=== PATIENT | male | born 1975 | race Caucasian/White ===

== ENCOUNTER 2017-02-19 06:12 | Emergency (ER) | payer OTHER ==
[~2017-02-19] VITALS: Ht 195.6 cm; Wt 99.0 kg
[~2017-02-19 06:12] MED LIST: ADDERALL20 MG PO; ALEVE220 M2 PO; ALEVE220 MG PO; CITALOPRAM HBR20 MG PO; CLONAZEPAM0.5 MG PO; FLEXERIL10 MG PO; LEXAPRO10 MG PO; MOTRIN IB200 MG; MOTRIN400 MG PO; MOTRIN800 MG PO; NAPROSYN500 MG PO; NOHOMEMEDS; NORCO 5/3251 TABLET PO; OXYCODONE HCL10 MG PO; POTASSIUM-9999 MG PO; PROMETHAZINE HC25 M1 PO; ROXICODONE5 MG PO; SEROQUEL100 MG PO; SEROQUEL50 MG PO; TYLENOL REGULA325 MG PO; ULTRAM50 MG PO; VALIUM10 MG PO; ZOFRAN4 MG PO; ZOLOFT100 MG PO
[2017-02-19 08:00] LABS: EOSINOPHIL (%) 0.7 % (0-5); EOSINOPHIL COUNT 0.1 K/uL (0-0.3); HEMATOCRIT 39.7 % (38.0-50.0); IMMATURE GRANULOCYTE (%) 0.3 % (0.0-0.7); INSTRUMENT ABS NEUTROPHIL CT 3.4 K/uL; LYMPHOCYTE COUNT 3.5 K/uL (1.0-2.8); MCH 31.5 PG (29.0-34.0); MCHC 35.3 G/DL (30.0-36.0); MCV 89.4 FL (86-99); MEAN PLAT.VOLUME 10.5 uM^3 (9.0-12.4); MONOCYTE (%) 6.2 % (3-12); MONOCYTE COUNT 0.5 K/uL (0-0.8); NEUTROPHIL (%) 45.8 % (45-76); NEUTROPHIL COUNT 3.4 K/uL (1.8-6.4); PLATELET COUNT 256 K/uL (156-360); RBC DIS.WIDTH-CV 12.1 % (11.8-14.6); RBC DIS.WIDTH-SD 39.7 % (39-53); RED BLOOD COUNT 4.44 M/uL (4.00-5.50); WHITE BLOOD COUNT 7.5 K/uL (4.1-10.2)
[2017-02-19 08:28] LABS: D-DIMER ELISA < 150.00 ng/mLDDU (<230)
[2017-02-19 08:33] LABS: TROP-I INTERPRETATION NEGATIVE; TROPONIN-I 0.02 ng/mL (0.0-0.30)
[2017-02-19 08:34] LABS: ANION GAP 11 MEQ/L (2-14); CHLORIDE 110 MEQ/L (99-109); GFR ESTIMATE (CALCULATED) > 59 mL/min/; GLUCOSE 98 mg/dL (70-99); POTASSIUM 3.2 MEQ/L (3.7-5.4); SAMPLE HEMOLYSIS CHECK 0; SAMPLE ICTERIC CHECK 0; SAMPLE LIPEMIA CHECK 0; SODIUM 143 MEQ/L (136-147); UREA NITROGEN (BUN) 11 mg/dL (9-23)
[2017-02-19 09:57] VITALS: BP 138/81
== END 2017-02-19 09:59 | disposition home or self-care (01) ==
LOC: EME 06:12
PROVIDERS: Emergency Medicine
DX: J20.9 Acute bronchitis, unspecified (principal); F41.9 Anxiety disorder, unspecified; J02.9 Acute pharyngitis, unspecified; I10 Essential (primary) hypertension; F17.200 Nicotine dependence, unspecified, uncomplicated
CPT/HCPCS: 71010; 80048; 84484; 85025; 85379; 87651 90; 93005; 99281; 99282

== ENCOUNTER 2017-06-16 07:39 | Emergency (ER) | payer OTHER ==
[~2017-06-16] VITALS: Ht 195.6 cm; Wt 94.7 kg
[2017-06-16 07:40] VITALS: BP 133/92
[2017-06-16] MEDS ORDERED: NAPROSYN500 MG PO (09:14)
== END 2017-06-16 09:43 | disposition home or self-care (01) ==
LOC: EME 07:39
DX: S93.401A Sprain of unspecified ligament of right ankle, initial encounter (principal); S90.01XA Contusion of right ankle, initial encounter; X50.1XXA Overexertion from prolonged static or awkward postures, initial encounter; Y93.E1 Activity, personal bathing and showering; F17.200 Nicotine dependence, unspecified, uncomplicated; F31.9 Bipolar disorder, unspecified; Z88.5 Allergy status to narcotic agent; Z88.6 Allergy status to analgesic agent; Z88.8 Allergy status to other drugs, medicaments and biological substances
CPT/HCPCS: 73610; 99281; 99284

== ENCOUNTER 2017-11-16 21:52 | Emergency (ER) | payer OTHER ==
[~2017-11-16] VITALS: Ht 195.6 cm; Wt 101.2 kg
[2017-11-16] MEDS ORDERED: PERCOCET 5/31 TABLET PO (23:25)
[2017-11-16] MEDS ORDERED: MOTRIN600 MG PO (23:25)
[2017-11-17 00:17] VITALS: BP 149/77
== END 2017-11-17 00:19 | disposition home or self-care (01) ==
LOC: EME 21:52
DX: T23.231A Burn of second degree of multiple right fingers (nail), not including thumb, initial encounter (principal); T31.0 Burns involving less than 10% of body surface; X19.XXXA Contact with other heat and hot substances, initial encounter; F32.9 Major depressive disorder, single episode, unspecified; F41.9 Anxiety disorder, unspecified; I10 Essential (primary) hypertension; J45.909 Unspecified asthma, uncomplicated; Z88.5 Allergy status to narcotic agent; Z88.6 Allergy status to analgesic agent; F17.200 Nicotine dependence, unspecified, uncomplicated
CPT/HCPCS: 99281; 99284